=== PATIENT | female | born 1980 | race Caucasian/White ===

== ENCOUNTER 2016-12-18 06:02 | Day surgery (SDC) | payer BC ==
[2016-12-17 09:47] LABS: BASOPHILS 0.2 %; BASOPHILS ABSOLUTE 0.03 10/3/uL (0.0-0.16); EOSINOPHILS 1.1 %; EOSINOPHILS ABSOLUTE 0.14 10/3/uL (0.0-0.53); HEMOGLOBIN 13.3 g/dL (12.0-16.0); IMMATURE GRANULOCYTES 0.2 %; IMMATURE GRANULOCYTES ABSOLUTE 0.03 10/3/uL (0.0-0.11); LYMPHOCYTES 18.2 %; LYMPHOCYTES ABSOLUTE 2.29 10/3/uL (0.67-4.30); MEAN CORPUS HGB CONC 33.3 g/dL (32.0-36.0); MEAN CORPUSCULAR HEMOGLOB 29.2 pg (26.0-34.0); MEAN CORPUSCULAR VOLUME 87.9 fL (80-100); MONOCYTES 4.9 %; MONOCYTES ABSOLUTE 0.61 10/3/uL (0.21-1.20); NEUTROPHILS 75.4 %; NEUTROPHILS ABSOLUTE 9.45 10/3/uL (2.02-8.40); PLATELET COUNT 303 10/3/uL (150-400); RBC DISTRIBUTION WIDTH 13.7 % (12.0-16.0); RED CELL COUNT 4.55 10/6/uL (4.0-5.6); WHITE BLOOD CELLS 12.6 10/3/uL (4.5-10.5)
[2016-12-17 09:51] LABS: MANUAL DIFF NO %
[2016-12-17 10:03] LABS: A/G RATIO 0.9 (0.7-1.9); ALBUMIN 3.5 G/DL (3.5-5.0); ALKALINE PHOSPHATASE 132 U/L (45-117); BUN (BLOOD UREA NITROGEN) 16 MG/DL (6-23); CHLORIDE, SERUM 105 MMOL/L (96-112); CO2 (CARBON DIOXIDE) 31 MMOL/L (24-34); CREATININE 0.78 MG/DL (0.55-1.02); GFR AFRICAN AMERICAN 115 ML/MIN (>=60); GFR NON AFRICAN AMERICAN 99 ML/MIN (>=60); GLOBULIN 3.8 G/DL (2.5-4.1); GLUCOSE, SERUM 89 MG/DL (60-99); SGOT(AST) 14 U/L (5-40); SGPT(ALT) 20 U/L (5-65); SODIUM, SERUM 141 MMOL/L (135-148); TOTAL BILIRUBIN 0.5 MG/DL (0-1.2); TOTAL PROTEIN 7.3 G/DL (6.0-8.5)
--- NOTE | ~2016-12-18 | OP ---
Record Of Operation [facility] [address] [facility] [address] [place]. [address] NAME: PRITI FLOREZ : 84 STATUS : REG [facility]#: [id number] AGE: 36 ADM/REG DATE : 12/18/16 MR#: [id number] REPORT SERV DATE: 12/18/16 DICTATED BY: SHUKRI JACQUES DATE: 12/18/16 REPORT STATUS : Draft TRANSCRIBED BY: MODL DATE: 12/18/16 DATE OF PROCEDURE: 12/18/2016 SERVICE: Otolaryngology. SURGEON: Shukri Jacques MD. PREOPERATIVE DIAGNOSIS: Chronic tonsillitis. POSTOPERATIVE DIAGNOSIS: Chronic tonsillitis. PROCEDURE: Tonsillectomy. ANESTHESIA: General endotracheal anesthesia. COMPLICATIONS: None. SPECIMEN: 1. Left tonsil. 2. Right tonsil. ESTIMATED BLOOD LOSS: 30 mL. FINDINGS: The patient had 2+ cryptic tonsils. STATEMENT OF MEDICAL NECESSITY: This is a 36-year-old female referred to me for chronic sore throats, halitosis, and tonsils that were chronic and cryptic appearing. I recommended tonsillectomy. STATEMENT OF OPERATION: The patient was brought to the operating room in supine position, transferred to the operating room table. All pressure points were padded. General endotracheal anesthesia was established. Afrin was instilled in the each nostril. Bacitracin was applied to the lips. A McIvor mouth gag was inserted and locked for retraction of the tongue and oral cavity. A red rubber catheter was passed through the left nares brought out the mouth and locked for retraction of the soft palate and uvula. A total of 7 mL of 0.25% plain Marcaine was injected in the peritonsillar spaces and parapharyngeal muscles bilaterally. The left tonsil was removed first with the suction cautery followed by the right tonsil. Hemostasis was obtained with the suction cautery. The nasopharynx and pharynx were irrigated thoroughly with warm saline. The stomach and oropharynx were suctioned clear of blood and fluid with an orogastric tube. This concluded the case. The McIvor mouth gag and red rubber were removed. The patient was turned back over to Anesthesia, where she was awoken, extubated, and transferred to the PACU in stable condition. Record Of Operation [facility] [address] [address] NAME: PRITI FLOREZ : 84 STATUS : REG [facility]#: [id number] AGE: 36 ADM/REG DATE : 12/18/16 MR#: [id number] REPORT SERV DATE: 12/18/16 DICTATED BY: SHUKRI JACQUES DATE: 12/18/16 REPORT STATUS : Draft TRANSCRIBED BY: MODYovani DATE: 12/18/16 PS/OLGA Shukri Jacques MD / [id number] CC: MD Ellyn Guzmán M.D.
[~2016-12-18 06:02] MED LIST: ADDERXR30 PO; AMB5 PO; ASMANEX INH; CELEXA40 MG PO; FLONASE NAS; FORTAMET500 MG PO; SYN.05 PO
== END 2016-12-18 13:56 | disposition home or self-care (01) ==
LOC: SDC 06:02
PROVIDERS: Otolaryngology
PROC: 0CTPXZZ Resection of Tonsils, External Approach (ICD-10-PCS; principal; 2016-12-18 07:15)
DX: J35.01 Chronic tonsillitis (principal); J45.909 Unspecified asthma, uncomplicated; G47.33 Obstructive sleep apnea (adult) (pediatric); E03.9 Hypothyroidism, unspecified; E28.2 Polycystic ovarian syndrome; E11.9 Type 2 diabetes mellitus without complications; F98.8 Other specified behavioral and emotional disorders with onset usually occurring in childhood and adolescence; F32.9 Major depressive disorder, single episode, unspecified; Z88.8 Allergy status to other drugs, medicaments and biological substances; Z88.1 Allergy status to other antibiotic agents; Z79.51 Long term (current) use of inhaled steroids; Z79.84 Long term (current) use of oral hypoglycemic drugs; Z79.899 Other long term (current) drug therapy; Z98.890 Other specified postprocedural states
CPT/HCPCS: 80053; 82962; 84703; 85025; 88304; 93005; A9270-GY; J1170; J2250; J2405; J2710; J3010